=== PATIENT | male | born 1970 | race Caucasian/White ===

== ENCOUNTER 2024-12-20 15:06 | Emergency (ER) | payer OTHER ==
[2024-12-20 15:17] VITALS: BP 156/75; PULSE 86; RESP 18; TEMP 97.8; BMI 27.6
[2024-12-20] MEDS ORDERED: LIDOCAINE 4% PATCH TP ONE (16:00)
[2024-12-20] MEDS ORDERED: ACETAMINOPHEN 500 MG TABLET (FP) ONE (16:01)
[2024-12-20] MEDS ORDERED: IBUPROFEN 400 MG TABLET (FP) PO ONE (16:01)
[2024-12-20] MEDS: LIDOCAINE 4% PATCH TP ONE (16:15)
[2024-12-20] MEDS: ACETAMINOPHEN 500 MG TABLET (FP) PO ONE (16:15)
[2024-12-20] MEDS: IBUPROFEN 400 MG TABLET (FP) PO ONE (16:15)
== END 2024-12-20 17:37 | disposition home or self-care (01) ==
LOC: JERFT 15:06 → JER 15:06 → JERFT 17:37
DX: R07.89 Other chest pain (principal); V89.2XXA Person injured in unspecified motor-vehicle accident, traffic, initial encounter; Y92.410 Unspecified street and highway as the place of occurrence of the external cause
CPT/HCPCS: 71046-TC-FY; 71101-TC-RT-FY; 99283-25